=== PATIENT | female | born 1970 | race Caucasian/White ===

== ENCOUNTER → 2016-09-03 | Outpatient (REF) ==
[2016-03-16 10:53] VITALS: BP 128/66
[~2016-09-03] MED LIST: CEFDINIR300 MG PO; DESYREL 50MG50 MG PO; ESZOPICOLONE; MEDROL DOSEPAK4 MG PO; MONONESSA 35 MC1 TA1 PO; SERTRALINE HYD100 MG PO; ZOFRAN ODT8 M1 PO
== END ==
LOC: LAB 14:18
DX: Z53.8 Procedure and treatment not carried out for other reasons (principal)

== ENCOUNTER → 2016-09-25 | Outpatient (CLI) | payer OTHER ==
[2016-03-16 10:53] VITALS: BP 128/66
== END ==
LOC: MAMMO 09:54
DX: Z12.31 Encounter for screening mammogram for malignant neoplasm of breast (principal)
CPT/HCPCS: G0202

== ENCOUNTER → 2016-10-16 | Outpatient (CLI) | payer OTHER ==
[2016-03-16 10:53] VITALS: BP 128/66
== END ==
LOC: RAD 08:45
DX: M79.672 Pain in left foot (principal)

== ENCOUNTER → 2017-07-15 | Outpatient (CLI) | payer OTHER ==
[2016-03-16 10:53] VITALS: BP 128/66
== END ==
LOC: RAD 16:28
DX: M54.5 Low back pain (principal); S70.01XA Contusion of right hip, initial encounter; X58.XXXA Exposure to other specified factors, initial encounter; Y99.0 Civilian activity done for income or pay; Z88.0 Allergy status to penicillin

== ENCOUNTER → 2017-10-03 | Outpatient (CLI) | payer OTHER ==
[2016-03-16 10:53] VITALS: BP 128/66
[2017-10-03 16:51] LABS: BUN/CREATININE RATIO 20.2 (6.0-26.0); CALCIUM 8.6 mg/dL (8.4-10.2); POTASSIUM 3.8 mmol/L (3.6-5.0)
== END ==
LOC: LAB 15:47
PROVIDERS: Nurse Practitioner Family
DX: G47.62 Sleep related leg cramps (principal)

== ENCOUNTER → 2017-11-21 | Outpatient (CLI) | payer OTHER ==
[2016-03-16 10:53] VITALS: BP 128/66
== END ==
LOC: RAD 15:52
DX: R10.9 Unspecified abdominal pain (principal); Z98.890 Other specified postprocedural states

== ENCOUNTER → 2017-12-09 | Outpatient (CLI) | payer OTHER ==
[2016-03-16 10:53] VITALS: BP 128/66
== END ==
LOC: MAMMO 10-23 10:00
DX: Z12.31 Encounter for screening mammogram for malignant neoplasm of breast (principal)

== ENCOUNTER 2017-12-17 18:45 | Emergency (ER) | payer OTHER ==
[~2017-12-17] VITALS: Wt 95.8 kg
[2017-12-17] MEDS ORDERED: FISH OIL1 IU (19:39)
[2017-12-17] MEDS ORDERED: PRENATAL FORMU1 EAC2 PO (19:39)
[2017-12-17] MEDS ORDERED: ESZOPICLONE2 MG PO (19:41)
[2017-12-17] MEDS ORDERED: NECON 7/7/71 TAB PO (19:41)
[2017-12-17 19:47] LABS: EOS # 0.1 (0.04-0.40); EOS % 1.1 % (1.0-5.0); HEMATOCRIT 38.6 % (37.0-47.0); HEMOGLOBIN 13.2 g/dL (12.5-16.0); LYMPH# 2.5 (1.50-4.00); MEAN CELL VOLUME 83 fl (78-100); MEAN CORPUSCULAR HEMOGLOBIN 28 pg (27-31); MEAN CORPUSCULAR HGB CONC 34 g/dL (33-37); MEAN PLATELET VOLUME 10.3 fl (7.4-10.4); MONO # 0.8 (0.20-0.80); NEU # 5.8 (1.40-6.50); PLATELET COUNT 292 K/mm3 (130-400); RED BLOOD COUNT 4.65 M/mm3 (4.10-5.30); RED CELL DISTRIBUTION WIDTH 14.8 % (11.5-14.5); WHITE BLOOD COUNT 9.2 K/mm3 (4.8-10.8)
[2017-12-17 19:50] LABS: TROPONIN-I < 0.03 ng/mL (0.00-0.06)
[2017-12-17 19:54] LABS: ALBUMIN 4.4 g/dL (3.5-5.0); CALCIUM 9.1 mg/dL (8.4-10.2); POTASSIUM 3.6 mmol/L (3.6-5.0); TOTAL BILIRUBIN 0.3 mg/dL (0.2-1.3); TOTAL PROTEIN 7.4 g/dL (6.3-8.2)
[2017-12-17 19:59] LABS: LIPASE 105 U/L (23-300)
[2017-12-17] MEDS ORDERED: ZOFRAN ODT8 M1 PO (23:48)
[2017-12-18 00:30] VITALS: BP 109/71
== END 2017-12-18 00:37 | disposition home or self-care (01) ==
LOC: ED 18:45
PROVIDERS: Nurse Practitioner Family
DX: R07.9 Chest pain, unspecified (principal); R10.13 Epigastric pain; R11.0 Nausea; R12 Heartburn; K21.9 Gastro-esophageal reflux disease without esophagitis; Z90.49 Acquired absence of other specified parts of digestive tract; Z87.891 Personal history of nicotine dependence; Z79.899 Other long term (current) drug therapy
CPT/HCPCS: C9113; J2270; J2405; J3490; J7030

== ENCOUNTER → 2018-01-20 | Outpatient (CLI) | payer OTHER ==
[~2018-01-20] VITALS: Ht 160 cm; Wt 90.5 kg
[~2018-01-20] MED LIST changes: +ESZOPICLONE2 MG PO; +FISH OIL1 IU; +NECON 7/7/71 TAB PO; +PRENATAL FORMU1 EAC2 PO
[2018-01-20 14:22] LABS: EOS # 0.2 (0.04-0.40); EOS % 2.2 % (1.0-5.0); HEMATOCRIT 40.4 % (37.0-47.0); HEMOGLOBIN 13.6 g/dL (12.5-16.0); LYMPH# 2.6 (1.50-4.00); MEAN CELL VOLUME 83 fl (78-100); MEAN CORPUSCULAR HEMOGLOBIN 28 pg (27-31); MEAN CORPUSCULAR HGB CONC 34 g/dL (33-37); MONO # 0.5 (0.20-0.80); NEU # 4.4 (1.40-6.50); PLATELET COUNT 301 K/mm3 (130-400); RED BLOOD COUNT 4.87 M/mm3 (4.10-5.30); RED CELL DISTRIBUTION WIDTH 14.6 % (11.5-14.5); WHITE BLOOD COUNT 7.7 K/mm3 (4.8-10.8)
[2018-01-20 14:30] VITALS: BP 135/86
[2018-01-20 14:38] LABS: ALBUMIN 4.5 g/dL (3.5-5.0); CALCIUM 9.3 mg/dL (8.4-10.2); POTASSIUM 4.4 mmol/L (3.6-5.0); TOTAL BILIRUBIN 0.4 mg/dL (0.2-1.3); TOTAL PROTEIN 7.6 g/dL (6.3-8.2)
== END ==
LOC: AMSURD 14:03
PROVIDERS: Student in an Organized Health Care Education/Training Program
DX: Z01.818 Encounter for other preprocedural examination (principal)

== ENCOUNTER → 2018-01-21 | Outpatient (CLI) | payer OTHER ==
[2018-01-20 14:30] VITALS: BP 135/86
[2018-01-21 12:11] LABS: URINE WBC 0 /hpf (0-3)
[2018-01-21 12:40] LABS: URINE APPEARANCE CLEAR; URINE BILIRUBIN NEGATIVE (NEGATIVE); URINE BLOOD NEGATIVE (NEGATIVE); URINE COLOR YELLOW; URINE GLUCOSE NEGATIVE (NEGATIVE); URINE KETONE NEGATIVE (NEGATIVE); URINE LEUKOCYTE ESTERASE NEGATIVE (NEGATIVE); URINE NITRATE NEGATIVE (NEGATIVE); URINE PROTEIN(semi-quant) NEGATIVE (NEGATIVE); URINE UROBILINOGEN NORMAL (NORMAL)
== END ==
LOC: LAB 11:53
PROVIDERS: Physician Assistant
DX: Z01.812 Encounter for preprocedural laboratory examination (principal)

== ENCOUNTER → 2018-09-04 | Outpatient (CLI) | payer OTHER ==
[2018-01-20 14:30] VITALS: BP 135/86
[2018-09-04 10:47] LABS: EOS # 0.1 (0.04-0.40); HEMATOCRIT 41.1 % (37.0-47.0); HEMOGLOBIN 13.4 g/dL (12.5-16.0); LYMPH# 2.3 (1.50-4.00); MEAN CELL VOLUME 87 fl (78-100); MEAN CORPUSCULAR HEMOGLOBIN 29 pg (27-31); MEAN CORPUSCULAR HGB CONC 33 g/dL (33-37); MEAN PLATELET VOLUME 9.5 fl (7.4-10.4); MONO # 0.7 (0.20-0.80); NEU # 5.3 (1.40-6.50); PLATELET COUNT 313 K/mm3 (130-400); RED CELL DISTRIBUTION WIDTH 13.8 % (11.5-14.5); WHITE BLOOD COUNT 8.4 K/mm3 (4.8-10.8)
[2018-09-04 10:55] LABS: ALBUMIN 4.2 g/dL (3.5-5.0); POTASSIUM 3.6 mmol/L (3.5-5.1)
[2018-09-04 10:56] LABS: CALCIUM 9.4 mg/dL (8.3-10.5)
[2018-09-04 10:58] LABS: TOTAL PROTEIN 7.3 g/dL (6.4-8.3)
[2018-09-04 10:59] LABS: TOTAL BILIRUBIN 0.4 mg/dL (0.2-1.2)
== END ==
LOC: RAD 10:33
PROVIDERS: Physician Assistant
DX: R16.0 Hepatomegaly, not elsewhere classified (principal); R19.4 Change in bowel habit

== ENCOUNTER 2018-10-30 13:00 | Outpatient (RCR) | payer OTHER ==
[2018-01-20 14:30] VITALS: BP 135/86
== END 2018-11-20 | disposition still patient (30) ==
LOC: PT
DX: M54.5 Low back pain (principal); M25.551 Pain in right hip; G89.29 Other chronic pain

== ENCOUNTER → 2018-11-11 | Outpatient (CLI) | payer OTHER ==
[2018-01-20 14:30] VITALS: BP 135/86
[2018-11-11 11:46] LABS: ALBUMIN 4.1 g/dL (3.5-5.0)
[2018-11-11 11:47] LABS: POTASSIUM 3.8 mmol/L (3.5-5.1)
[2018-11-11 11:48] LABS: CALCIUM 9.1 mg/dL (8.3-10.5)
[2018-11-11 11:49] LABS: EOS # 0.1 (0.04-0.40); EOS % 1.5 % (1.0-5.0); HEMOGLOBIN 12.3 g/dL (12.5-16.0); MEAN CELL VOLUME 86 fl (78-100); MEAN CORPUSCULAR HEMOGLOBIN 29 pg (27-31); MEAN CORPUSCULAR HGB CONC 33 g/dL (33-37); MEAN PLATELET VOLUME 9.9 fl (7.4-10.4); MONO # 0.6 (0.20-0.80); PLATELET COUNT 310 K/mm3 (130-400); RED BLOOD COUNT 4.28 M/mm3 (4.10-5.30); RED CELL DISTRIBUTION WIDTH 14.3 % (11.5-14.5); TOTAL PROTEIN 6.9 g/dL (6.4-8.3); WHITE BLOOD COUNT 6.7 K/mm3 (4.8-10.8)
[2018-11-11 11:51] LABS: TOTAL BILIRUBIN 0.2 mg/dL (0.2-1.2)
== END ==
LOC: LAB 11:24
DX: K59.00 Constipation, unspecified (principal); R10.13 Epigastric pain; R14.0 Abdominal distension (gaseous)

== ENCOUNTER → 2018-12-04 | Day surgery (SDC) | payer OTHER ==
[2018-01-20 14:30] VITALS: BP 135/86
== END ==
LOC: MSO 11-20 13:26
DX: R19.7 Diarrhea, unspecified (principal); K59.00 Constipation, unspecified; R14.0 Abdominal distension (gaseous); R10.13 Epigastric pain; R10.11 Right upper quadrant pain; Z79.899 Other long term (current) drug therapy; G89.29 Other chronic pain; M25.559 Pain in unspecified hip; F41.9 Anxiety disorder, unspecified; Z88.0 Allergy status to penicillin; Z90.710 Acquired absence of both cervix and uterus
CPT/HCPCS: 00813; J2704; J7120

== ENCOUNTER → 2018-12-11 | Outpatient (CLI) | payer OTHER ==
[2018-01-20 14:30] VITALS: BP 135/86
== END ==
LOC: RAD 07:24
DX: K80.20 Calculus of gallbladder without cholecystitis without obstruction (principal); K59.00 Constipation, unspecified

== ENCOUNTER → 2019-03-26 | Outpatient (CLI) | payer OTHER ==
[2018-01-20 14:30] VITALS: BP 135/86
== END ==
LOC: RAD 11:44
DX: M48.061 Spinal stenosis, lumbar region without neurogenic claudication (principal); M51.36 Other intervertebral disc degeneration, lumbar region; M47.816 Spondylosis without myelopathy or radiculopathy, lumbar region; S76.011A Strain of muscle, fascia and tendon of right hip, initial encounter

== ENCOUNTER → 2019-08-31 | Outpatient (CLI) | payer OTHER ==
[2018-01-20 14:30] VITALS: BP 135/86
== END ==
LOC: LAB 12:37
DX: Z20.828 Contact with and (suspected) exposure to other viral communicable diseases (principal)

== ENCOUNTER → 2019-10-06 | Outpatient (CLI) | payer BC, OTHER ==
[2018-01-20 14:30] VITALS: BP 135/86
[2019-10-06 16:57] LABS: EOS # 0.1 (0.04-0.40); EOS % 1.6 % (1.0-5.0); HEMATOCRIT 40.4 % (37.0-47.0); HEMOGLOBIN 13.5 g/dL (12.5-16.0); LYMPH# 2.5 (1.50-4.00); MEAN CELL VOLUME 90 fl (78-100); MEAN CORPUSCULAR HEMOGLOBIN 30 pg (27-31); MEAN CORPUSCULAR HGB CONC 33 g/dL (33-37); MEAN PLATELET VOLUME 9.7 fl (7.4-10.4); MONO # 0.5 (0.20-0.80); NEU # 3.3 (1.40-6.50); PLATELET COUNT 288 K/mm3 (130-400); RED CELL DISTRIBUTION WIDTH 12.6 % (11.5-14.5); WHITE BLOOD COUNT 6.4 K/mm3 (4.8-10.8)
[2019-10-06 17:10] LABS: ALBUMIN 4.4 g/dL (3.5-5.0); POTASSIUM 4.2 mmol/L (3.5-5.1)
[2019-10-06 17:11] LABS: CALCIUM 8.9 mg/dL (8.3-10.5)
[2019-10-06 17:13] LABS: TOTAL PROTEIN 7.4 g/dL (6.4-8.3)
[2019-10-06 17:14] LABS: TOTAL BILIRUBIN 0.2 mg/dL (0.2-1.2)
== END ==
LOC: LAB 16:43
PROVIDERS: Physician Assistant
DX: I10 Essential (primary) hypertension (principal); M47.819 Spondylosis without myelopathy or radiculopathy, site unspecified; K90.9 Intestinal malabsorption, unspecified; M79.673 Pain in unspecified foot; R68.89 Other general symptoms and signs

== ENCOUNTER → 2019-11-18 | Outpatient (CLI) | payer BC ==
[2018-01-20 14:30] VITALS: BP 135/86
[2019-11-18 17:19] LABS: POTASSIUM 4.6 mmol/L (3.5-5.1); SODIUM 136 mmol/L (136-145)
[2019-11-18 17:20] LABS: CALCIUM 9.7 mg/dL (8.3-10.5); GLUCOSE 105 mg/dL (65-105)
[2019-11-18 17:22] LABS: CARBON DIOXIDE 23 mmol/L (22-29)
[2019-11-20 12:16] LABS: ANA SCREEN with REFLEX Negative (Negative)
== END ==
LOC: LAB 15:39
PROVIDERS: Physician Assistant
DX: Z00.00 Encounter for general adult medical examination without abnormal findings (principal); Z23 Encounter for immunization; Z12.31 Encounter for screening mammogram for malignant neoplasm of breast; I10 Essential (primary) hypertension; M21.941 Unspecified acquired deformity of hand, right hand; M21.942 Unspecified acquired deformity of hand, left hand

== ENCOUNTER → 2020-01-25 | Outpatient (CLI) | payer BC, OTHER ==
[2018-01-20 14:30] VITALS: BP 135/86
== END ==
LOC: MAMMO 09:02
DX: Z12.31 Encounter for screening mammogram for malignant neoplasm of breast (principal)

== ENCOUNTER → 2021-05-17 | Outpatient (CLI) | payer BC, OTHER | LOC: RAD 15:50 | DX: M41.86 Other forms of scoliosis, lumbar region (principal); M51.36 Other intervertebral disc degeneration, lumbar region ==

== ENCOUNTER → 2021-06-05 | Outpatient (CLI) | payer BC, OTHER | LOC: RAD 12:15 | DX: M47.816 Spondylosis without myelopathy or radiculopathy, lumbar region (principal); M47.817 Spondylosis without myelopathy or radiculopathy, lumbosacral region; M51.36 Other intervertebral disc degeneration, lumbar region ==

== ENCOUNTER → 2021-07-26 | Outpatient (CLI) | payer BC, OTHER ==
[2021-07-26 13:19] LABS: URINE APPEARANCE CLEAR; URINE BILIRUBIN NEGATIVE (NEGATIVE); URINE COLOR LT YELLOW; URINE GLUCOSE NEGATIVE (NEGATIVE); URINE KETONE NEGATIVE (NEGATIVE); URINE PROTEIN(semi-quant) NEGATIVE (NEGATIVE); URINE UROBILINOGEN NORMAL (NORMAL)
[2021-07-26 13:20] LABS: URINE BLOOD TRACE (NEGATIVE); URINE LEUKOCYTE ESTERASE 1+ (NEGATIVE); URINE NITRATE NEGATIVE (NEGATIVE)
== END ==
LOC: LAB 12:07
PROVIDERS: Physician Assistant
DX: M47.816 Spondylosis without myelopathy or radiculopathy, lumbar region (principal); R82.998 Other abnormal findings in urine; R35.0 Frequency of micturition

== ENCOUNTER → 2021-11-14 | Outpatient (CLI) | payer BC, OTHER ==
[2021-11-14 12:01] LABS: URINE APPEARANCE HAZY; URINE BILIRUBIN NEGATIVE (NEGATIVE); URINE BLOOD 250 ery/uL (NEGATIVE); URINE COLOR YELOW; URINE GLUCOSE NEGATIVE (NEGATIVE); URINE KETONE NEGATIVE (NEGATIVE); URINE LEUKOCYTE ESTERASE 2+ (NEGATIVE); URINE NITRATE NEGATIVE (NEGATIVE); URINE PROTEIN(semi-quant) TRACE (NEGATIVE); URINE UROBILINOGEN NORMAL (NORMAL); URINE WBC >50 /hpf (0-3)
== END ==
LOC: LAB 11:41
PROVIDERS: Physician Assistant
DX: N39.0 Urinary tract infection, site not specified (principal)

== ENCOUNTER → 2021-12-05 | Outpatient (CLI) | payer BC, OTHER ==
[2021-12-05 10:23] LABS: BASO # 0.05 K/mm3 (0.02-0.10); EOS # 0.08 K/mm3 (0.04-0.40); EOS % 1.4 % (1.0-5.0); HEMATOCRIT 39.3 % (37.0-47.0); LYMPH# 2.03 K/mm3 (1.50-4.00); MEAN CELL VOLUME 92 fl (78-100); MEAN CORPUSCULAR HEMOGLOBIN 30 pg (27-31); MEAN CORPUSCULAR HGB CONC 33 g/dL (33-37); MEAN PLATELET VOLUME 9.4 fl (7.4-10.4); MONO # 0.41 K/mm3 (0.20-0.80); NEU # 3.07 K/mm3 (1.40-6.50); PLATELET COUNT 266 K/mm3 (130-400); RED BLOOD COUNT 4.28 M/mm3 (4.10-5.30); RED CELL DISTRIBUTION WIDTH 13.1 % (11.5-14.5); WHITE BLOOD COUNT 5.6 K/mm3 (4.8-10.8)
[2021-12-05 10:33] LABS: POTASSIUM 4.4 mmol/L (3.5-5.1)
[2021-12-05 10:34] LABS: ALBUMIN 4.4 g/dL (3.5-5.0)
[2021-12-05 10:35] LABS: CALCIUM 9.3 mg/dL (8.3-10.5)
[2021-12-05 10:36] LABS: TOTAL PROTEIN 7.1 g/dL (6.4-8.3)
[2021-12-05 10:38] LABS: TOTAL BILIRUBIN 0.5 mg/dL (0.2-1.2)
== END ==
LOC: MAMMO 09:13
PROVIDERS: Physician Assistant
DX: Z12.31 Encounter for screening mammogram for malignant neoplasm of breast (principal); Z13.1 Encounter for screening for diabetes mellitus; Z13.29 Encounter for screening for other suspected endocrine disorder; Z00.00 Encounter for general adult medical examination without abnormal findings; I10 Essential (primary) hypertension; M47.816 Spondylosis without myelopathy or radiculopathy, lumbar region; K59.09 Other constipation; M51.36 Other intervertebral disc degeneration, lumbar region; F51.02 Adjustment insomnia; G25.0 Essential tremor; F41.8 Other specified anxiety disorders

== ENCOUNTER → 2022-05-29 | Outpatient (CLI) | payer BC, OTHER | LOC: RAD 08:48 | DX: R10.9 Unspecified abdominal pain (principal) ==

== ENCOUNTER → 2022-07-05 | Outpatient (CLI) | payer BC, OTHER | LOC: RAD 13:48 | DX: M25.561 Pain in right knee (principal) ==

== ENCOUNTER 2023-02-13 08:00 | Outpatient (RCR) | payer BC, OTHER ==
[~2023-02-13 08:00] MED LIST changes: +ALPRAZOLAM0.5 MG PO; +LISINOPRIL20 MG PO; +PAROXETINE HYDR20 MG PO; +PEG335017 GM/Dose PO
== END 2023-02-14 ==
LOC: PT
DX: M17.11 Unilateral primary osteoarthritis, right knee (principal)

== ENCOUNTER 2023-02-15 08:00 | Outpatient (RCR) | payer BC, OTHER | END 2023-03-17 | LOC: PT | DX: M17.11 Unilateral primary osteoarthritis, right knee (principal) ==

== ENCOUNTER → 2024-04-02 | Outpatient (CLI) | payer BC ==
[2024-04-02 08:32] LABS: ALBUMIN 4.6 g/dL (3.5-5.0)
[2024-04-02 08:33] LABS: CALCIUM 9.6 mg/dL (8.3-10.5)
[2024-04-02 08:34] LABS: TOTAL PROTEIN 7.6 g/dL (6.4-8.3)
[2024-04-02 08:36] LABS: TOTAL BILIRUBIN 0.6 mg/dL (0.2-1.2)
[2024-04-02 23:12] LABS: FOLATE (FOLIC ACID) 19.7 ng/mL (2.0-20.0)
[2024-04-07 07:10] LABS: VITAMIN B1 153.2 nmol/L (())
== END ==
LOC: LAB 08:10
PROVIDERS: Physician Assistant
DX: Z13.228 Encounter for screening for other metabolic disorders (principal)